=== PATIENT | female | born 1960 | race African-American/Black ===

== ENCOUNTER 2020-04-13 07:35 | Day surgery (SDC) | payer OTHER ==
[2020-04-06 11:59] VITALS: BMI 27.4
[2020-04-13] MEDS ORDERED: PROPOFOL 20 ML ONE ×3 (08:11)
[2020-04-13] MEDS ORDERED: LIDOCAINE HCL/PF 2% SDV 5ML VIAL ONE (08:11)
[2020-04-13 09:39] VITALS: TEMP 97.8
[2020-04-13 10:11] VITALS: BP 107/67; PULSE 74
== END 2020-04-13 10:10 | disposition home or self-care (01) ==
LOC: FASU-ENDO 07:35
PROVIDERS: ATTEND Internal Medicine Gastroenterology
PROC: 0DJD8ZZ Inspection of Lower Intestinal Tract, Via Natural or Artificial Opening Endoscopic (ICD-10-PCS; principal; 2020-04-13 09:12)
DX: Z86.010 Personal history of colon polyps (principal); K57.30 Diverticulosis of large intestine without perforation or abscess without bleeding